=== PATIENT | male | born 1960 | race Caucasian/White ===

== ENCOUNTER 2020-12-15 15:53 | Emergency (ER) | payer BC ==
[2020-12-15] MEDS ORDERED: Cyclobenzaprine 10 MG Tab PO ONE (16:46)
[2020-12-15] MEDS ORDERED: Ketorolac 30 MG/ML SDV IM ONE (16:46)
--- NOTE | 2020-12-15 16:49 | EDM.PDOC ---
ED HPI GENERAL MEDICAL PROBLEM - General Chief Complaint: Back Pain or Injury Stated Complaint: LOWER BACK PAIN Time Seen by Provider: 12/15/20 16:42 Source of Information: Reports: Patient, Family, RN Notes Reviewed History Limitations: Reports: No Limitations - History of Present Illness INITIAL COMMENTS - FREE TEXT/NARRATIVE: 60-year-old gentleman presents emergency department day complaint of low back pain predominantly on the left side, he does work in [employer] he tried to take a couple days off for rest and then went back and worked today full 8 hours he states the pain just got significantly worse. No loss of bowel or bladder no fevers Left Lower Back Pain Score (Numeric/FACES): 3 - Related Data Allergies Allergy/AdvReac Type Severity Reaction Status Date / Time amoxicillin [From Augmentin] Allergy Diarrhea Verified 12/15/20 16:29 clavulanic acid Allergy Diarrhea Verified 12/15/20 16:29 [From Augmentin] Home Meds: Home Meds Cholestyramine/Aspartame [Questran Light Powder] 4 gm PO BID 03/06/18 [History] Glimepiride [Amaryl] 2 mg PO DAILY 03/06/18 [History] Lisinopril 10 mg PO DAILY 03/06/18 [History] Omeprazole Magnesium [Prilosec Otc] 20 mg PO DAILY 03/06/18 [History] Warfarin [Coumadin] 5 mg PO .WED 03/06/18 [History] Warfarin [Coumadin] 7.5 mg PO SUMOTUTHFRSA 03/06/18 [History] atorvaSTATin Calcium [Lipitor] 20 mg PO DAILY 03/06/18 [History] metFORMIN [Glucophage XR] 500 mg PO DAILY 03/06/18 [History] Magnesium 400 mg PO DAILY 03/08/18 [History] Past Medical History HEENT History: Reports: Impaired Vision Cardiovascular History: Reports: High Cholesterol, Hypertension Respiratory History: Reports: PE, Other (See Below) Other Respiratory History: latent factor 5 Gastrointestinal History: Reports: Cholelithiasis, Gastritis, GERD Musculoskeletal History: Reports: Fracture, Neck Pain, Chronic, Other (See Below) Other Musculoskeletal History: right shoulder pain. low back pain Endocrine/Metabolic History: Reports: Obesity/BMI 30+, Other (See Below) Other Endocrine/Metabolic History: borderline diabetic Hematologic History: Reports: Other (See Below) Other Hematologic History: LEIDEN factor 5 Immunologic History: Reports: None Oncologic (Cancer) History: Reports: None Dermatologic History: Reports: None - Infectious Disease History Infectious Disease History: Reports: C-Difficile - Past Surgical History GI Surgical History: Reports: Cholecystectomy, Colonoscopy Musculoskeletal Surgical History: Reports: Other (See Below) Other Musculoskeletal Surgeries/Procedures:: trigger injections Social & Family History - Family History Family Medical History: No Pertinent Family History - Tobacco Use Tobacco Use Status *Q: Current Every Day Tobacco User Years of Tobacco use: 41 Packs/Tins Daily: 1 - Caffeine Use Caffeine Use: Reports: None - Recreational Drug Use Recreational Drug Use: No ED ROS GENERAL - Review of Systems Review Of Systems: See Below Constitutional: Reports: No Symptoms Respiratory: Reports: No Symptoms Cardiovascular: Reports: No Symptoms GI/Abdominal: Reports: No Symptoms Musculoskeletal: Reports: Back Pain Neurological: Reports: No Symptoms ED EXAM,LOWER BACK PAIN/INJURY - Physical Exam Exam: See Below Exam Limited By: No Limitations General Appearance: Alert, Mild Distress Respiratory/Chest: No Respiratory Distress Back Exam: Normal Inspection, Decreased Range of Motion, Muscle Spasm, Paraspinal Tenderness. No: CVA Tenderness (R), CVA Tenderness (L), Vertebral Tenderness Course - Vital Signs Last Recorded V/S: Last Vital Signs Temp 97.8 F 12/15/20 16:35 Pulse 75 12/15/20 17:24 Resp 16 12/15/20 16:35 BP 113/77 12/15/20 17:24 Pulse Ox 95 12/15/20 17:24 - Orders/Labs/Meds Labs: Laboratory Tests 12/15/20 Range/Units 17:10 PT 23.5 H (9.5-12.0) sec INR 2.19 H (0.80-1.20) Meds: Medications Discontinued Medications Generic Name Dose Route Start Last Admin Trade Name Freq PRN Reason Stop Dose Admin Cyclobenzaprine HCl 10 mg 12/15/20 16:46 12/15/20 17:05 Cyclobenzaprine 10 Mg Tab PO 12/15/20 16:47 10 mg ONETIME ONE Administration Ketorolac Tromethamine 30 mg 12/15/20 16:46 12/15/20 17:04 Ketorolac 30 Mg/Ml Sdv IM 12/15/20 16:47 30 mg ONETIME ONE Administration Departure - Departure Time of Disposition: 17:51 Disposition: Home, Self-Care 01 Condition: Fair Clinical Impression: Low back pain Qualifiers: Chronicity: acute Back pain laterality: left Sciatica presence: without sciatica Qualified Code(s): M54.5 - Low back pain - Discharge Information Instructions: Muscle Strain, [id number], Acute Back Pain, Adult Referrals: Darrius Boo, [employer] [Primary Care Provider] - Forms: ED Department Discharge Additional Instructions: Continue to use Tylenol Motrin as needed for pain control, try the muscle relaxant Flexeril as needed, please followup with your primary care provider in 3-5 days if not better, please call return to the emergency department with worsening of symptoms. Sepsis Event Note (ED) - Evaluation Sepsis Screening Result: No Definite Risk - Focused Exam Vital Signs: Vital Signs Temp Pulse Resp BP Pulse Ox 12/15/20 17:24 75 113/77 95 12/15/20 16:35 97.8 F 79 16 181/133 H 96 - Assessment/Plan Plan: Assessment Acuity = acute Site and laterality = low back pain Etiology = secondary to lifting injury Manifestations = none Location of injury = Home Lab values = none Plan Had some improvement combination Toradol Flexeril prescription written for Flexeril 10 mg 1 tab p.o. 3 times daily as needed total #15 I did offer him further made pain medication but he declined This note was dictated using [employer] recognition software please call with any questions on syntax or grammar.
== END 2020-12-15 18:08 | disposition home or self-care (01) ==
LOC: JP.ED 15:53
DX: M54.5 Low back pain (principal); E78.00 Pure hypercholesterolemia, unspecified; I10 Essential (primary) hypertension; K21.9 Gastro-esophageal reflux disease without esophagitis; E66.9 Obesity, unspecified; Z68.37 Body mass index [BMI] 37.0-37.9, adult; Z79.899 Other long term (current) drug therapy; Z88.0 Allergy status to penicillin; Z72.0 Tobacco use; Z79.01 Long term (current) use of anticoagulants; Z79.84 Long term (current) use of oral hypoglycemic drugs
CPT/HCPCS: 36415; 85610; 96372; 99283; A9270; J1885

== ENCOUNTER 2021-02-22 07:25 | Day surgery (SDC) | payer BC ==
[~2021-02-22 07:25] MED LIST: Bupivacaine 0.5% 30 ML SDV ONE; Midazolam 1 MG/ML 2 ML SDV ONE; Propofol 200 MG/20 ML SDV ONE; fentaNYL 100 MCG/2 ML SDV ONE
[2021-02-22] MEDS ORDERED: Bupivacaine 0.5% 50 ML MDV ONE (07:28)
[2021-02-22] MEDS ORDERED: ceFAZolin 1 GM in Premix Bag 1 BAG IV ONE (08:00)
[2021-02-22] MEDS ORDERED: Nozin Nasal Sanitizer NASBOTH ONE (08:00)
[2021-02-22] MEDS ORDERED: Lactated Ringers 1,000 ML IV SCH (08:00)
[2021-02-22] MEDS ORDERED: Midazolam 1 MG/ML 2 ML SDV ONE (10:10)
[2021-02-22] MEDS ORDERED: fentaNYL 100 MCG/2 ML SDV ONE (10:33)
[2021-02-22] MEDS ORDERED: Propofol 200 MG/20 ML SDV ONE ×2 (10:41→11:22)
[2021-02-22] MEDS ORDERED: Lactated Ringers 1,000 ML ONE (11:24)
--- NOTE | 2021-03-03 22:36 | OR ---
DATE OF PROCEDURE: 02/22/2021 SURGEON: Isra Bower MD PREOPERATIVE DIAGNOSES: 1. Impingement, right shoulder. 2. Partial rotator cuff tear, right shoulder. 3. Acromioclavicular arthrosis, right shoulder. POSTOPERATIVE DIAGNOSES: 1. Impingement, right shoulder. 2. Partial thickness rotator cuff tear, right shoulder. 3. Acromioclavicular arthrosis, right shoulder. 4. 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 PROCEDURES: Arthroscopy, right shoulder, with subacromial decompression acromioplasty, distal clavicle resection, and repair of partial-thickness rotator cuff tear. RESIDENTIAL LEASING MANAGER: EDIN Melissa ANESTHESIA: Interscalene block with sedation. INDICATIONS: Lokesh is a 60-year-old gentleman with a history of progressive pain in his right shoulder for the past several months. He has failed conservative treatment. Examination and imaging are consistent with impingement of rotator cuff in the right shoulder with a partial-thickness rotator cuff tear and acromioclavicular arthropathy contributing to the impingement. He now presents for arthroscopic evaluation with subacromial decompression acromioplasty, distal clavicle resection, and repair of rotator cuff. Risks, benefits, potential complications of the procedure were discussed. DESCRIPTION OF PROCEDURE: After adequate anesthesia was obtained, the patient was placed in a lateral decubitus position and secured with a wiley bag positioner. The right shoulder and arm were prepped and draped in a sterile fashion and 10 pounds of traction was placed in shoulder traction unit. A standard posterior portal was established and glenohumeral joint was inspected. This revealed evidence of chronic tear of the long head of the biceps, which was absent and completely healed over the superior labrum. Some mild degenerative fraying of the labrum was noted. Articular surfaces of the humeral head and glenoid were intact. Subscapularis was intact. Undersurface of the rotator cuff showed a partial-thickness tear with some erythema adjacent to the tear. The anterior portal was established and the partial-thickness tear was further evaluated and lightly debrided showing at least a 50% thickness involvement. The tendon was marked with a PDS suture through a spinal needle and the scope was then removed and placed in the subacromial space. Significant impingement noted against the coracoacromial ligament with fraying of the ligament and the soft tissues on the undersurface of the acromion. Lateral portal was established, and using combination of the shaver and radiofrequency ablation, soft tissues were cleared from the undersurface of the acromion and coracoacromial ligament was released. A barb was then utilized to perform an acromioplasty removing the anterolateral edge of the acromion and resecting this medially to the AC joint. Under-hanging AC osteophytes were present and these were further delineated using radiofrequency ablation removing the inferior capsule. A barb was used to remove the inferior surface of the distal clavicle until the limits of this approach were reached. A barb was switched to the anterior portal and resection of this clavicle continued from an inferior to superior direction, removing approximately 8 mm of the distal clavicle with careful attention paid to the posterior corner. Once this was done, attention was returned to the rotator cuff. The area of the cuff that had previously been marked with a PDS was identified and probed and found to be very thin, consistent with significant partial-thickness tear. Marking suture was removed. An 11 blade was used to make a small longitudinal incision in the partial tear, exposing the footprint. Shaver was used to debride the edges of the tendon and a barb used to lightly decorticate the footprint. A single Mitek Healix anchor was placed into the tuberosity. One limb of each of the suture pairs was then passed through the tendon in a mattress fashion and sutures were then tied down in standard arthroscopic technique. Both limbs of each of the suture pairs were then passed through a knotless anchor. A tunnel was placed on the lateral edge of the acromion and the knotless anchor was secured creating a suture bridge and double row repair. Sutures were cut. Arm was taken through internal and external rotation showing stable construct. The scope was withdrawn and the port sites were closed in a standard fashion. Sterile dressing was then applied. The patient tolerated the procedure very well. There were no complications, taken from the operating room in stable condition. Isra Bower MD /[id number]
== END 2021-02-22 13:47 | disposition home or self-care (01) ==
LOC: JP.SDS 07:25
PROVIDERS: ATTEND Specialist
DX: M75.111 Incomplete rotator cuff tear or rupture of right shoulder, not specified as traumatic (principal); M19.011 Primary osteoarthritis, right shoulder; M25.811 Other specified joint disorders, right shoulder; S46.111A Strain of muscle, fascia and tendon of long head of biceps, right arm, initial encounter; I10 Essential (primary) hypertension; E11.9 Type 2 diabetes mellitus without complications; G89.29 Other chronic pain; Z79.84 Long term (current) use of oral hypoglycemic drugs; Z98.890 Other specified postprocedural states; Z79.01 Long term (current) use of anticoagulants; Z88.8 Allergy status to other drugs, medicaments and biological substances; Z88.1 Allergy status to other antibiotic agents
CPT/HCPCS: 29824; 29826; 29827; A9270; C1713; J0690; J2250; J2704; J3010; J3490; J7120

== ENCOUNTER 2021-06-13 17:59 | Emergency (ER) | payer BC ==
[2021-06-13] MEDS ORDERED: oxyCODONE 5 MG Tab PO ONE (18:43)
== END 2021-06-13 19:22 | disposition home or self-care (01) ==
LOC: JP.ED 17:59
DX: S22.42XA Multiple fractures of ribs, left side, initial encounter for closed fracture (principal); E78.00 Pure hypercholesterolemia, unspecified; I10 Essential (primary) hypertension; E11.9 Type 2 diabetes mellitus without complications; E66.9 Obesity, unspecified; Z68.39 Body mass index [BMI] 39.0-39.9, adult; Z88.0 Allergy status to penicillin; Z79.01 Long term (current) use of anticoagulants; Z79.899 Other long term (current) drug therapy; Z79.84 Long term (current) use of oral hypoglycemic drugs; W00.0XXA Fall on same level due to ice and snow, initial encounter
CPT/HCPCS: 71101-LT; 99283; 99283-25; A9270-GY

== ENCOUNTER 2022-11-26 11:50 | Emergency (ER) | payer BC ==
[2022-11-26] MEDS ORDERED: Bacitracin Oint 1 GM U/D Packet TOP ONE (13:42)
[2022-11-26] MEDS ORDERED: Diphtheria,Pertussis(Acell),Tetanus Vaccine 0.5 ML Syringe IM ONE (13:53)
== END 2022-11-26 15:10 | disposition home or self-care (01) ==
LOC: JP.ED 11:50
DX: S01.81XA Laceration without foreign body of other part of head, initial encounter (principal); E78.00 Pure hypercholesterolemia, unspecified; I10 Essential (primary) hypertension; K21.9 Gastro-esophageal reflux disease without esophagitis; E11.9 Type 2 diabetes mellitus without complications; E66.9 Obesity, unspecified; F17.210 Nicotine dependence, cigarettes, uncomplicated; Z88.0 Allergy status to penicillin; Z88.8 Allergy status to other drugs, medicaments and biological substances; Z79.84 Long term (current) use of oral hypoglycemic drugs; Z79.899 Other long term (current) drug therapy; Z79.01 Long term (current) use of anticoagulants; Z23 Encounter for immunization; W20.8XXA Other cause of strike by thrown, projected or falling object, initial encounter
CPT/HCPCS: 12013; 70450; 90471; 90715; 99283; 99283-25

== ENCOUNTER 2025-04-07 06:25 | Day surgery (SDC) | payer BC ==
[2025-04-07] MEDS ORDERED: Ondansetron 4 MG/2 ML SDV ONE (07:20)
[2025-04-07] MEDS ORDERED: Succinylcholine 200 MG/10 ML MDV ONE (07:20)
[2025-04-07] MEDS ORDERED: Propofol 200 MG/20 ML SDV ONE (07:20)
[2025-04-07] MEDS ORDERED: fentaNYL 250 MCG/5 ML SDV ONE (07:20)
[2025-04-07] MEDS ORDERED: Dexamethasone 4 MG/ML SDV ONE (07:20)
[2025-04-07] MEDS ORDERED: Glycopyrrolate 0.2 MG/ML 5 ML MDV ONE (07:20)
[2025-04-07] MEDS: Lactated Ringers 1,000 ML IV SCH (07:30)
[2025-04-07 07:43] LABS: INR 1.1
[2025-04-07] MEDS: Bupivacaine 0.25%/EPINEPHrine 1:200,000 30 ML SDV ONE (09:13)
[2025-04-07] MEDS ORDERED: Lactated Ringers 1,000 ML ONE (09:19)
[2025-04-07] MEDS ORDERED: fentaNYL 100 MCG/2 ML SDV ONE (10:07)
[2025-04-07] MEDS ORDERED: Ketorolac 30 MG/ML SDV ONE (10:16)
[2025-04-07] MEDS: Ondansetron 4 MG/2 ML SDV IVPUSH PRN (10:48)
== END 2025-04-07 13:30 | disposition home or self-care (01) ==
LOC: JP.SDS 06:25
PROVIDERS: ATTEND Surgery
DX: K43.6 Other and unspecified ventral hernia with obstruction, without gangrene (principal); I11.0 Hypertensive heart disease with heart failure; I50.9 Heart failure, unspecified; E11.9 Type 2 diabetes mellitus without complications; E66.813 Obesity, class 3; F17.210 Nicotine dependence, cigarettes, uncomplicated; Z88.1 Allergy status to other antibiotic agents; Z88.8 Allergy status to other drugs, medicaments and biological substances; Z79.84 Long term (current) use of oral hypoglycemic drugs; Z79.01 Long term (current) use of anticoagulants; Z68.38 Body mass index [BMI] 38.0-38.9, adult; Z79.899 Other long term (current) drug therapy
CPT/HCPCS: 36415; 49592; 85610; A9270; C1781; J0330; J0690; J1100; J1596; J1885; J1920; J2270; J2405; J2704; J2710; J3010; J7120; 00752-QZ; J3490